=== PATIENT | male | born 1950 | race Asian ===

== ENCOUNTER 2022-11-12 08:00 | Day surgery (SDC) | payer OTHER ==
[2022-11-07 15:09] VITALS: BMI 28.7
[2022-11-12] MEDS ORDERED: PROPOFOL 160 ML ONE (08:11)
[2022-11-12 08:24] VITALS: RESP 18; TEMP 97.8
[2022-11-12 10:39] VITALS: BP 109/64; PULSE 67
== END 2022-11-12 10:41 | disposition home or self-care (01) ==
LOC: FASU-ENDO 08:00
PROVIDERS: ATTEND Internal Medicine Gastroenterology
PROC: 0DBL8ZX Excision of Transverse Colon, Via Natural or Artificial Opening Endoscopic, Diagnostic (ICD-10-PCS; 2022-11-12)
PROC: 0DBN8ZX Excision of Sigmoid Colon, Via Natural or Artificial Opening Endoscopic, Diagnostic (ICD-10-PCS; 2022-11-12)
PROC: 0DBP8ZX Excision of Rectum, Via Natural or Artificial Opening Endoscopic, Diagnostic (ICD-10-PCS; 2022-11-12)
PROC: 0DBM8ZX Excision of Descending Colon, Via Natural or Artificial Opening Endoscopic, Diagnostic (ICD-10-PCS; 2022-11-12)
PROC: 0DBK8ZX Excision of Ascending Colon, Via Natural or Artificial Opening Endoscopic, Diagnostic (ICD-10-PCS; principal; 2022-11-12 09:23)
DX: Z12.11 Encounter for screening for malignant neoplasm of colon (principal); Z87.19 Personal history of other diseases of the digestive system; K64.1 Second degree hemorrhoids; K57.30 Diverticulosis of large intestine without perforation or abscess without bleeding; K52.89 Other specified noninfective gastroenteritis and colitis; K63.89 Other specified diseases of intestine
CPT/HCPCS: 88305-TC